=== PATIENT | female | born 1990 | race Caucasian/White ===

== ENCOUNTER 2022-02-15 15:22 | Outpatient (REF) | payer OTHER, SELFPAY ==
[2022-02-15 16:09] LABS: Influenza A PCR POSITIVE (Negative); Influenza B PCR NEGATIVE (Negative); Resp Syncy Virus RNA Qual PCR NEGATIVE (Negative); SARS COV2 PCR INHOUSE NEGATIVE (Negative)
== END 2022-02-15 15:23 | disposition home or self-care (01) ==
LOC: HO.LNP 15:22
DX: J06.9 Acute upper respiratory infection, unspecified (principal); Z20.822 Contact with and (suspected) exposure to COVID-19
CPT/HCPCS: 0241U

== ENCOUNTER 2022-03-08 19:14 | Outpatient (REF) | payer OTHER, SELFPAY ==
[2022-03-08 20:08] LABS: Influenza A PCR NEGATIVE (Negative); Influenza B PCR NEGATIVE (Negative); Resp Syncy Virus RNA Qual PCR NEGATIVE (Negative); SARS COV2 PCR INHOUSE NEGATIVE (Negative)
== END 2022-03-08 19:15 | disposition home or self-care (01) ==
LOC: HO.LNP 19:14
PROVIDERS: Visit Provider Physician Assistant Medical
DX: Z20.822 Contact with and (suspected) exposure to COVID-19 (principal); R05.9 Cough, unspecified
CPT/HCPCS: 0241U

== ENCOUNTER 2022-09-24 13:24 | Outpatient (AMB) | payer OTHER, SELFPAY ==
--- NOTE | 2022-09-24 13:29 | A.OFFPC_ITS ---
Vital Signs 09/24/22 13:31 Height 5 ft 6 in Weight 161 lb BMI 26.0 BP 110/68 Blood Pressure Location Lt brachial Position Sitting Pulse 79 Pulse Source Pulse Oximeter Pulse Oximetry (%) 100 Oxygen Delivery Method Room Air Intake Visit Reasons: Annual PE do not resched plz Intake Note: Pt is here today for a PE. Allergies No Known Allergies Allergy (Verified 09/24/22 13:33) Tobacco use date assessed: 09/24/22 Dental Screening Dental Screen Date: 09/24/22 Did you have a dental visit in the last 12 months?: Yes Did you have a dental problem in the last 6 months where you did not have access to dental care?: No Was dental information given to patient?: Patient has dentist HPI Annual PE do not resched plz HPI Details Pt presents for PE. Patient follows up with psychiatrist and psychologist for chronic depression and anxiety. [facility] Medical History (Updated 09/24/22 @ 15:13 by Lety Muse MD) ADHD Annual physical exam Anxiety Back pain History of Papanicolaou smear of cervix Reactive depression Viral upper respiratory tract infection with cough Surgical History No pertinent past surgical history Family History Father No problems noted. Mother No problems noted. Brother Mental health disorder Social History Housing: House Patient Tobacco Use Status: Never used Tobacco e-Cigarette/Vaping Use: Never Used Current occupational status: employed Cognitive needs: No Hearing needs: No Vision needs: No Questionnaire PHQ-9 Over the last 2 weeks, how often have you been bothered by any of the following problems? 1. Little interest or pleasure in doing things: more than half the days 2. Feeling down, depressed, or hopeless: more than half the days 3. Trouble falling or staying asleep, or sleeping too much: nearly every day 4. Feeling tired or having little energy: more than half the days 5. Poor appetite or overeating: more than half the days 6. Feeling bad about yourself - or that you are a failure or have let yourself or your family down: nearly every day 7. Trouble concentrating on things, such as reading the newspaper or watching television: nearly every day 8. Moving or speaking so slowly that other people could have noticed. Or the opposite - being so fidgety or restless that you have been moving around a lot more than usual: nearly every day 9. Thoughts that you would be better off or of hurting yourself in some way: more than half the days Total score: 22 Depression Screening Interpretation: Positive Source: Developed by Drs. Panchito Davis, Justina Angulo, Franklin Cross and colleagues, with an educational felipe from [employer]. Thrive Questionnaire Date Thrive assessed: 09/24/22 I am a: Patient What is your living situation today?: I have a steady place to live Within the past 12 months, did the food you bought not last and you didn't have the money to get more?: Never true Within the past 12 months, did you worry whether your food would run out before you got money to buy more?: Never true Do you have trouble paying for medicines?: No Do you have trouble getting transportation to medical appointments?: No Do you have trouble paying your heating and electricity bill?: No Do you have trouble taking care of your child, family member or friend?: Yes Do you have trouble with day-to-day activities such as bathing, preparing meals, shopping, managing finances, etc.?: No Are you currently unemployed and looking for a job?: No Are you interested in more education?: Yes Please select the resources that you would like help with: None Currently or been in a relationship where the following occur: no concerns reported AUDIT C Alcohol Use Questionnaire (AUDIT-C) 1. How often do you have a drink containing alcohol?: Monthly or less 2. How many drinks containing alcohol do you have on a typical day when you are drinking?: 1 or 2 3. How often do you have six or more drinks on one occasion?: Never Total Score: 1 CODY-7 AMB Questionnaire CODY-7 Date CODY - 7 assessed: 09/24/22 Feeling nervous, anxious, or on edge: 2 = More than half the days Not being able to stop or control worryin = Nearly every day Worrying too much about different things: 3 = Nearly every day Trouble relaxin = Several days Being so restless that it is hard to sit still: 1 = Several days Becoming easily annoyed or irritable: 2 = More than half the days Feeling afraid as if something awful might happen: 0 = Not at all Total CODY-7 score (0-4 normal; 5-9 mild; 10-14 moderate; 15-21 severe): 12 Source: Developed by Drs. Panchito Davis, Justina Angulo, Franklin Cross and colleagues, with an educational felipe from [employer]. Review of Systems Const All systems reviewed & are unremarkable except as noted in HPI and below Reports no additional complaints Eyes Reports no additional complaints ENT Reports no additional complaints Card Reports no additional complaints Resp Reports no additional complaints GI Reports no additional complaints Reports no additional complaints Physical exam (Primary Care) Vital Signs: Last Vital Signs Pulse 79 09/24/22 13:31 BP 110/68 09/24/22 13:31 Pulse Ox 100 09/24/22 13:31 Oxygen Delivery Method Room Air 09/24/22 13:31 BMI result Body Mass Index 26.0 Tobacco/Smoking Status: Tobacco use Status Tobacco use date assessed 09/24/22 09/24/22 13:37 Patient Tobacco Use Status Never used Tobacco 09/24/22 13:37 e-Cigarette/Vaping Use Never Used 09/24/22 13:30 PHQ-9: PHQ-9 Score PHQ-9: Total score 22 09/24/22 14:37 Depression Screening Interpretation: Positive Thrive Assessment: Date of Thrive Assessment Date Thrive assessed 09/24/22 09/24/22 13:39 Currently or been in a relationship where the following occur: no concerns reported Const General: no acute distress HENMD Head: Yes normal to inspection Ears: hearing grossly normal bilaterally General nose exam: Normal external nose present Face and sinus: Yes normal facial exam Mouth: Normal oral and palatal mucosa present Throat: Yes posterior oropharynx normal Eyes General: appearance normal, both eyes and all related structures Neck Neck: Yes no lymphadenopathy and Yes supple Resp Effort & Inspection: normal respiratory effort Auscultation: clear to auscultation bilaterally Cardio Rhythm: regular rhythm Heart sounds: S1 normal heart sound present and S2 normal heart sound present GI Inspection: Yes normal to inspection Palpation (GI): Soft to palpation Percussion: Yes normal to percussion Auscultation: normal bowel sounds Results AMB Urinalysis, Automated UA Leukoctes 0 Howard/uL Last Edit by Kae Jose RN on 09/24/22 14:17 UA Nitrite Negative Last Edit by Kae Jose RN on 09/24/22 14:17 UA Urobilinogen 0.2 mg/dL Last Edit by Kae Jose RN on 09/24/22 14:17 UA Protein 0 mg/dL Last Edit by Kae Jose RN on 09/24/22 14:17 UA pH 8.5 Last Edit by Kae Jose RN on 09/24/22 14:17 UA Blood 0 Misael/uL Last Edit by Kae Jose RN on 09/24/22 14:17 UA Specific [place] 1.010 Last Edit by Kae Jose RN on 09/24/22 14:17 UA Ketone Negative Last Edit by Kae oJse RN on 09/24/22 14:17 UA Bilirubin 0 mg/dL Last Edit by Kae Jose RN on 09/24/22 14:17 UA Glucose 0 mg/dL Last Edit by Kae Jose RN on 09/24/22 14:17 Results Reviewed Results Reviewed: Laboratory Last Values Urine pH (Auto) 8.5 09/24/22 14:15 Specific [place] (Auto) 1.010 09/24/22 14:15 Urine Protein (Auto) 0 mg/dL 09/24/22 14:15 Glucose (UA)(Auto) 0 mg/dL 09/24/22 14:15 Urine Ketones (Auto) Negative 09/24/22 14:15 Urine Blood (Auto) 0 Misael/uL 09/24/22 14:15 Urine Nitrite (Auto) Negative 09/24/22 14:15 Urine Bilirubin (Auto) 0 mg/dL 09/24/22 14:15 Urine Urobilinogen (Auto) 0.2 mg/dL 09/24/22 14:15 Leukocyte Esterase (Auto) 0 Howard/uL 09/24/22 14:15 Assessment and Plan Assessment & Plan (1) Cough: Code(s): R05.9 - Cough, unspecified Plan: For chronic cough check chest x-ray (2) Annual physical exam: Code(s): Z00.00 - Encounter for general adult medical examination without abnormal findings Plan: Well-balanced diet and regular physical activity discussed with the patient. she will return for fasting blood work and will schedule Pap smear (3) Anxiety: Comment: f/u with psychiatrist and psychologist Code(s): F41.9 - Anxiety disorder, unspecified Orders: Orders Comprehensive [place]. Panel Fast Today R05.9 - Cough, unspecified, Z00.00 - Encounter for general adult medical examination without abnormal findings Complete Blood Count Auto Diff Today R05.9 - Cough, unspecified, Z00.00 - Encounter for general adult medical examination without abnormal findings Lipid Panel Today R05.9 - Cough, unspecified, Z00.00 - Encounter for general adult medical examination without abnormal findings HIV Ab/Ag Today R05.9 - Cough, unspecified, Z00.00 - Encounter for general adult medical examination without abnormal findings Syphilis Screen Today R05.9 - Cough, unspecified, Z00.00 - Encounter for general adult medical examination without abnormal findings CT NG by PCR Today R05.9 - Cough, unspecified, Z00.00 - Encounter for general adult medical examination without abnormal findings Vitamin B12 and Folate Today R05.9 - Cough, unspecified, Z00.00 - Encounter for general adult medical examination without abnormal findings AMB Urinalysis Automated Today Z13.9 - Encounter for screening, unspecified Coding Level of Care Code Est Pt Prev Care 18-39y(31029) Diagnoses Cough R05.9 Annual physical exam Z00.00 Anxiety F41.9
[2022-09-24 13:31] VITALS: BP 110/68; PULSE 79; O2SAT 100; BMI 26.0
== END 2022-09-24 14:58 | disposition home or self-care (01) ==
PROVIDERS: PCP Internal Medicine; Visit Provider Internal Medicine
DX: R05.9 Cough, unspecified (principal); Z00.00 Encounter for general adult medical examination without abnormal findings; F41.9 Anxiety disorder, unspecified; Z13.9 Encounter for screening, unspecified
CPT/HCPCS: 81003; 99395

== ENCOUNTER 2022-09-24 14:30 | Outpatient (REF) | payer OTHER, SELFPAY ==
--- NOTE | ~2022-09-24 | XR_ITS ---
EXAMINATION: XR CHEST CLINICAL INFORMATION: Cough COMPARISON: None available. TECHNIQUE: 2 views of the chest were obtained. FINDINGS: The lungs are well expanded. There is no focal consolidation, edema, or effusion. No pneumothorax. The cardiomediastinal silhouette is within normal limits. No acute osseous abnormality. XR/XR chest 2V IMPRESSION: Clear lungs.
== END 2022-09-24 14:31 | disposition home or self-care (01) ==
LOC: HO.HMGCX 14:30
PROVIDERS: PCP Internal Medicine; Visit Provider Internal Medicine
DX: R05.9 Cough, unspecified (principal)
CPT/HCPCS: 71046

== ENCOUNTER 2022-11-12 12:37 | Outpatient (AMB) | payer OTHER, SELFPAY ==
[2022-11-12 13:08] VITALS: BP 106/64; PULSE 79; O2SAT 99; BMI 26.5
--- NOTE | 2022-11-12 13:08 | A.OFFPC_ITS ---
Vital Signs 11/12/22 13:08 Height 5 ft 6 in Weight 164 lb BMI 26.5 BP 106/64 Blood Pressure Location Rt brachial Position Sitting Pulse 79 Pulse Source Pulse Oximeter Pulse Oximetry (%) 99 Oxygen Delivery Method Room Air Intake Visit Reasons: 6 wk f/u Intake Note: Pt is here today for 6 weeks follow up visit. Allergies No Known Allergies Allergy (Verified 11/12/22 13:10) Medication List - Last Reconciled 11/12/22 by Lety Muse MD buspirone 5 mg PO BID PRN dextroamphetamine-amphetamine 20 mg ER 1 cap PO QAM Tobacco use date assessed: 09/24/22 HPI 6 wk f/u HPI Details Patient presents for Pap smear. She denies complaints [facility] Medical History ADHD Annual physical exam Anxiety Back pain History of Papanicolaou smear of cervix Reactive depression Viral upper respiratory tract infection with cough Surgical History No pertinent past surgical history Family History Father No problems noted. Mother No problems noted. Brother Mental health disorder Social History Housing: House Patient Tobacco Use Status: Never used Tobacco e-Cigarette/Vaping Use: Never Used Current occupational status: employed Cognitive needs: No Hearing needs: No Vision needs: No Questionnaire Thrive Questionnaire Date Thrive assessed: 09/24/22 CODY-7 AMB Questionnaire CODY-7 Date CODY - 7 assessed: 09/24/22 Source: Developed by Drs. Panchito Davis, Justina Angulo, Franklin Cross and colleagues, with an educational felipe from [email or web address]. Review of Systems Const All systems reviewed & are unremarkable except as noted in HPI and below Reports no additional complaints Eyes Reports no additional complaints ENT Reports no additional complaints Card Reports no additional complaints Resp Reports no additional complaints Reports no additional complaints Physical exam (Primary Care) Vital Signs: Last Vital Signs Pulse 79 11/12/22 13:08 BP 106/64 11/12/22 13:08 Pulse Ox 99 11/12/22 13:08 Oxygen Delivery Method Room Air 11/12/22 13:08 BMI result Body Mass Index 26.5 Tobacco/Smoking Status: Tobacco use Status Tobacco use date assessed 09/24/22 11/12/22 13:12 Patient Tobacco Use Status Never used Tobacco 11/12/22 13:12 e-Cigarette/Vaping Use Never Used 11/12/22 13:12 Thrive Assessment: Date of Thrive Assessment Date Thrive assessed 09/24/22 11/12/22 13:12 Const General: no acute distress HENMT Face and sinus: Yes normal facial exam Throat: Yes posterior oropharynx normal Neck Neck: Yes no lymphadenopathy and Yes supple Resp Effort & Inspection: normal respiratory effort Auscultation: clear to auscultation bilaterally Cardio Rhythm: regular rhythm Heart sounds: S1 normal heart sound present and S2 normal heart sound present GI Inspection: Yes normal to inspection Palpation (GI): Soft to palpation Auscultation: normal bowel sounds External Female Exam: normal external appearance Speculum Exam - Vagina: normal appearance of the vagina Speculum Exam - Cervix: normal appearance of the cervix Bimanual exam- vagina & uterus: normal bimanual exam Bimanual Exam- Adnexa, other: normal adnexae Assessment and Plan Assessment & Plan (1) Annual physical exam: Code(s): Z00.00 - Encounter for general adult medical examination without abnormal findings Plan: Pap smear Was done today. Check BV panel for vaginal discharge. Patient will return for fasting blood work Orders: Orders Pap Smear Today Z00.00 - Encounter for general adult medical examination without abnormal findings Bacterial Vaginosis Panel Today Z00.00 - Encounter for general adult medical examination without abnormal findings Coding Level of Care Code Est Pt Level 3 (04607) Diagnoses Annual physical exam Z00.00
== END 2022-11-12 15:21 | disposition home or self-care (01) ==
PROVIDERS: PCP Internal Medicine; Visit Provider Internal Medicine
DX: Z12.4 Encounter for screening for malignant neoplasm of cervix (principal)
CPT/HCPCS: 99213

== ENCOUNTER 2022-11-12 14:05 | Outpatient (REF) | payer OTHER, SELFPAY ==
[2022-11-16 12:48] LABS: HPV mRNA E6/E7 Not Detected (Not Detected)
== END 2022-11-12 14:06 | disposition home or self-care (01) ==
LOC: HO.LNP 14:05
PROVIDERS: Visit Provider Internal Medicine
DX: Z12.4 Encounter for screening for malignant neoplasm of cervix (principal)
CPT/HCPCS: 87624; 88142

== ENCOUNTER 2022-11-12 15:21 | Outpatient (REF) | payer OTHER, SELFPAY ==
[2022-11-13 08:49] LABS: BV Int Neg Control Negative (Negative); BV Int Pos Control Positive (Positive)
== END 2022-11-12 15:22 | disposition home or self-care (01) ==
LOC: HO.LAB 15:21
PROVIDERS: Visit Provider Internal Medicine
DX: Z00.00 Encounter for general adult medical examination without abnormal findings (principal)
CPT/HCPCS: 87480; 87510; 87660

== ENCOUNTER 2024-07-16 11:49 | Outpatient (AMB) | payer OTHER, SELFPAY ==
--- OUTSIDE RECORDS SUMMARY | 2024-07-16 12:20 | XMS_ITS | Patient Health Record ---
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 Name Role Phone Lety Muse MD Primary Care Provider Kam Villavicencio Unavailable [phone] Allergies No Known Allergies Reason For Referral No Information Medications Medication SIG (Take, Route, Frequency, Duration) Notes Start Date End Date Status BuSpar Active Immunizations Vaccine Route Administration Date Status Comme nts COVID-19 Pfizer BioNTech Vaccine Unknown 02/28/2020 Adm inistered #2 03/28/20 Social History Tobacco Use: Social History Observation Description Date Details (start date - stop date) Never Smoker NA - NA Tobacco Use/Smoking Question Answer Notes Are you a: nonsmoker Additional Findings: Tobacco Non-User Current no n-smoker Alcohol Screen Question Answer Notes Did you have a drink contain ing alcohol in the past year? Yes How often did you have a dri nk containing alcohol in the past year? Monthly or less (1 point) Points 1 Interpretation Negative Tobacco use other than smoking: Question Answer Notes Are you an other tobacco user? No Problems Problem Type SNOMED Code ICD Code Onset Dates Problem Status W/U Status Risk Notes Problem Plantar wart ([id number]) Plantar wart (B07.0) Active confirmed Plan Of Treatment Pending Test Test Name Order Date [id number] Destruction, -03/22/2020 [id number] Destruction, 03-2304/25/2020 [id number] Destruction, 03-2305/15/2020 [id number] Destruction, 03-2306/26/2020 [id number]-Pvwa Destruction, 03-2307/17/2020 [id number] Destruction, 03-2308/03/2020 Insurance Providers Payer Name Payer Address Payer Phone Subscriber Number Group Number Insured Name Patient Relationship to Insured Coverage Start Date Coverage End Date [employer] [address] [place] [phone] [id number] Mercy Pichardo Self - patient is the insured Medical (General) History Medical History History ICD Code Anxiety Tuberculosis 2011 Surgical History Surgery Date(Month/Year) Plantar wart removal 2012
--- OUTSIDE RECORDS SUMMARY | 2024-07-16 12:20 | XMS_ITS ---
Author Name [facility] Organization Unknown History of Medication Use Medication Directions Dispensed Refills Start Date End Date Stat us benzonatate (TESSALON) 100 MG capsule Swallow whole one (100mg) capsule by mouth 3 times a day as needed.Do not break, chew, dissolve, cut or crush. 03/16/2024 03/24/2024 active busPIRone (BUSPAR) 5 MG tablet 02/28/2024 active Problems Problem Status Onset Date Problem Type Date of Resoluti on Source Acute cough active EncounterDiagnosisAct [facility] Sore throat active EncounterDiagnosisAct [facility] Encounters Encounter Type Encounter Reason Primary Diagnosis Location Date Ambulatory Respiratory Acute pharyngiti s, unspecified [facility] 03/16/2024 Care Team Organization Name Specialty Phone Email Start Date End Da te [facility] NO PCP Primary Care 03/17
[2024-07-16 12:23] VITALS: BP 114/76; PULSE 84; RESP 18; TEMP 37.3; O2SAT 98; BMI 26.1
--- NOTE | 2024-07-16 12:23 | A.OFFPC_ITS ---
Vital Signs 07/16/24 12:23 Height 5 ft 6 in Weight 162 lb BMI 26.1 BP 114/76 Blood Pressure Location Lt brachial Position Sitting Respiration 18 Pulse 84 Pulse Source Pulse Oximeter Temp 99.1 F Temp Source Oral Pulse Oximetry (%) 98 Oxygen Delivery Method Room Air Intake Visit Reasons: Annual PE Intake Note: Pt is here today for PE. Pt states that she has EKG done at weight loss clinic in [place] and was told that the EKG was abnormal. Allergies No Known Allergies Allergy (Verified 07/16/24 12:27) Medication List - Last Reconciled 07/16/24 by Lety Muse MD buspirone 5 mg PO BID PRN dextroamphetamine-amphetamine 20 mg ER 1 cap PO QAM Tobacco use date assessed: 07/16/24 Dental Screening Dental Screen Date: 07/16/24 Did you have a dental visit in the last 12 months?: Yes Did you have a dental problem in the last 6 months where you did not have access to dental care?: No Was dental information given to patient?: Patient has dentist HPI Annual PE HPI Details Patient presents for physical. She went to weight loss clinic and had a EKG done which showed abnormalities and the patient is concerned. She had 2 episodes of heart palpitations while at work in the stressful situations within the last 6 months. The palpitations lasted about 5 minutes. She exercises at [facility] twice a week for an hour , weight lifting and cardio on the treadmill and denies any chest pain shortness or breath or palpitations while exercising. Patient is getting in November [facility] Medical History Viral upper respiratory tract infection with cough Annual physical exam Back pain History of Papanicolaou smear of cervix ADHD Reactive depression Anxiety Surgical History No pertinent past surgical history Family History Father No problems noted. Mother No problems noted. Brother Mental health disorder Social History Housing: House Patient Tobacco Use Status: Never used Tobacco e-Cigarette/Vaping Use: Never Used service: No Current occupational status: employed Cognitive needs: No Hearing needs: No Vision needs: No Questionnaire PHQ-9 Over the last 2 weeks, how often have you been bothered by any of the following problems? 1. Little interest or pleasure in doing things: not at all 2. Feeling down, depressed, or hopeless: not at all 3. Trouble falling or staying asleep, or sleeping too much: not at all 4. Feeling tired or having little energy: not at all 5. Poor appetite or overeating: not at all 6. Feeling bad about yourself - or that you are a failure or have let yourself or your family down: not at all 7. Trouble concentrating on things, such as reading the newspaper or watching television: not at all 8. Moving or speaking so slowly that other people could have noticed. Or the opposite - being so fidgety or restless that you have been moving around a lot more than usual: not at all 9. Thoughts that you would be better off or of hurting yourself in some way: not at all Total score: 0 Depression Screening Interpretation: Negative Depression Screening Done: Yes 26793 - PHQ-9 Billing: Yes Source: Developed by Drs. Panchito Davis, Justina Angulo, Franklin Cross and colleagues, with an educational felipe from [employer]. Thrive Questionnaire Date Thrive assessed: 07/16/24 I am a: Patient What is your living situation today?: I have a steady place to live Within the past 12 months, did the food you bought not last and you didn't have the money to get more?: Often true Within the past 12 months, did you worry whether your food would run out before you got money to buy more?: Often true Do you have trouble paying for medicines?: I choose not to answer this question Do you have trouble getting transportation to medical appointments?: I choose not to answer this question Do you have trouble paying your heating and electricity bill?: I choose not to answer this question Do you have trouble taking care of your child, family member or friend?: I choose not to answer this question Do you have trouble with day-to-day activities such as bathing, preparing meals, shopping, managing finances, etc.?: I choose not to answer this question Are you currently unemployed and looking for a job?: I choose not to answer this question Are you interested in more education?: I choose not to answer this question Please select the resources that you would like help with: None Currently or been in a relationship where the following occur: I choose not to answer THRIVE Score: 2 AUDIT C Alcohol Use Questionnaire (AUDIT-C) 1. How often do you have a drink containing alcohol?: Never 3. How often do you have six or more drinks on one occasion?: Never Total Score: 0 CODY-7 AMB Questionnaire CODY-7 Date CODY - 7 assessed: 07/16/24 Feeling nervous, anxious, or on edge: 0 = Not at all Not being able to stop or control worryin = Not at all Worrying too much about different things: 0 = Not at all Trouble relaxin = Not at all Being so restless that it is hard to sit still: 0 = Not at all Becoming easily annoyed or irritable: 0 = Not at all Feeling afraid as if something awful might happen: 0 = Not at all Total CODY-7 score (0-4 normal; 5-9 mild; 10-14 moderate; 15-21 severe): 0 Source: Developed by Drs. Panchito Davis, Justina Angulo, Franklin Cross and colleagues, with an educational felipe from [employer]. CODY-7 Assessment Billing CODY-7 Assessment Tool: CODY-7 Assessment 59552 Review of Systems Const All systems reviewed & are unremarkable except as noted in HPI and below Reports no additional complaints Eyes Reports no additional complaints ENT Reports no additional complaints Card Reports no additional complaints Resp Reports no additional complaints GI Reports no additional complaints Reports no additional complaints Physical exam (Primary Care) Vital Signs: Last Vital Signs Temp 99.1 F 07/16/24 12:23 Pulse 84 07/16/24 12:23 Resp 18 07/16/24 12:23 BP 114/76 07/16/24 12:23 Pulse Ox 98 07/16/24 12:23 Oxygen Delivery Method Room Air 07/16/24 12:23 BMI result Body Mass Index 26.1 Tobacco/Smoking Status: Tobacco use Status Tobacco use date assessed 07/16/24 07/16/24 12:30 Patient Tobacco Use Status Never used Tobacco 07/16/24 12:30 e-Cigarette/Vaping Use Never Used 07/16/24 12:30 PHQ-9: PHQ-9 Score PHQ-9: Total score 0 07/16/24 12:30 Depression Screening Interpretation: Negative Thrive Assessment: Date of Thrive Assessment Date Thrive assessed 07/16/24 07/16/24 12:32 Currently or been in a relationship where the following occur: I choose not to answer Const General: no acute distress HENMT Head: Yes normal to inspection Ears: hearing grossly normal bilaterally Face and sinus: Yes normal facial exam Mouth: Normal oral and palatal mucosa present Throat: Yes posterior oropharynx normal Eyes General: appearance normal, both eyes and all related structures Neck Neck: Yes no lymphadenopathy and Yes supple Resp Effort & Inspection: normal respiratory effort Auscultation: clear to auscultation bilaterally Cardio Rhythm: regular rhythm Heart sounds: S1 normal heart sound present and S2 normal heart sound present GI Inspection: Yes normal to inspection Palpation (GI): Soft to palpation Percussion: Yes normal to percussion Auscultation: normal bowel sounds Results AMB Urinalysis, Automated UA Leukoctes 0 Howard/uL Last Edit by Tala Medrano Teresa on 07/16/24 12:31 UA Nitrite Negative Last Edit by Tala Medrano [facility] on 07/16/24 12:31 UA Urobilinogen 0.2 mg/dL Last Edit by Tala Medrano [facility] on 07/16/24 12: 31 UA Protein 0 mg/dL Last Edit by Tala Medrano [facility] on 07/16/24 12:31 UA pH 7.0 Last Edit by Tala Medrano [facility] on 07/16/24 12:31 UA Blood 0 Misael/uL Last Edit by Tala Medrano [facility] on 07/16/24 12:31 UA Specific Eunice 1.005 Last Edit by Tala Medrano [facility] on 07/16/24 12 :31 UA Ketone Negative Last Edit by Tala Medrano [facility] on 07/16/24 12:31 UA Bilirubin 0 mg/dL Last Edit by Tala Medrano [facility] on 07/16/24 12:31 UA Glucose 0 mg/dL Last Edit by Tala Medrano [facility] on 07/16/24 12:31 Results Reviewed Results Reviewed: Laboratory Last Values Urine pH (Auto) 7.0 07/16/24 12:30 Specific Eunice (Auto) 1.005 07/16/24 12:30 Urine Protein (Auto) 0 mg/dL 07/16/24 12:30 Glucose (UA)(Auto) 0 mg/dL 07/16/24 12:30 Urine Ketones (Auto) Negative 07/16/24 12:30 Urine Blood (Auto) 0 Misael/uL 07/16/24 12:30 Urine Nitrite (Auto) Negative 07/16/24 12:30 Urine Bilirubin (Auto) 0 mg/dL 07/16/24 12:30 Urine Urobilinogen (Auto) 0.2 mg/dL 07/16/24 12:30 Leukocyte Esterase (Auto) 0 Howard/uL 07/16/24 12:30 Coding Level of Care Code Est Pt Prev Care 18-39y(31312) Diagnoses Annual physical exam Z00. Additional Codes CODY-7 Assessment Billing - CODY-7 Assessment Tool: CODY-7 Assessment 97021 ([id number]) PHQ-9 - 52403 - PHQ-9 Billing: Yes ([id number]) Assessment & Plan Assessment & Plan (1) Annual physical exam: Code(s): Z00.00 - Encounter for general adult medical examination without abnormal findings Category: Medical Plan: Well-balanced diet regular physical activity discussed with the patient she will have a fasting blood work today. EKG shows sinus rhythm with sinus arrhythmia the T-wave inversions in 3 AVF V4 through V6. Echocardiogram and Holter will be obtained to evaluate Orders: Orders Complete Blood Count Auto Diff Today R00.2 - Palpitations, Z00.00 - Encounter for general adult medical examination without abnormal findings TSH reflex Free T4 Today R00.2 - Palpitations, Z00.00 - Encounter for general adult medical examination without abnormal findings Vitamin D 25-OH Total Today Z00.00 - Encounter for general adult medical examination without abnormal findings CA echo transthoracic complete Today R00.2 - Palpitations, R94.31 - Abnormal electrocardiogram [ECG] [EKG] ECG 3 day holter monitor Today R00.2 - Palpitations, R94.31 - Abnormal electrocardiogram [ECG] [EKG] AMB EKG-In Office Today R00.2 - Palpitations, R94.31 - Abnormal electrocardiogram [ECG] [EKG] AMB Urinalysis Automated Today Z13.9 - Encounter for screening, unspecified Comprehensive [place]. Panel Fast Today R00.2 - Palpitations, Z00.00 - Encounter for general adult medical examination without abnormal findings Lipid Panel Today R00.2 - Palpitations, Z00.00 - Encounter for general adult medical examination without abnormal findings UA w Microscopic Today Z00.00 - Encounter for general adult medical examination without abnormal findings
== END 2024-07-16 13:23 | disposition home or self-care (01) ==
LOC: HO.HMCC 11:50
PROVIDERS: PCP Internal Medicine; Visit Provider Internal Medicine
DX: Z00.00 Encounter for general adult medical examination without abnormal findings (principal); Z13.9 Encounter for screening, unspecified

== ENCOUNTER 2024-07-16 11:49 | Outpatient (REF) | payer OTHER, SELFPAY ==
[2024-07-16 16:12] LABS: MANUAL DIFF FLAG NO
[2024-07-16 16:27] LABS: Basophils Percent Auto 0.5 % (0-2); Hematocrit 40.4 % (37.0-47.0); Hemoglobin 13.4 g/dl (12.0-16.0); Imm Gran Abs Auto 0.03 X10*3/uL (0.00-0.03); Imm Gran Pct Auto 0.4 % (0.0-0.4); Lymphocytes Absolute Auto 2.2 X10*3/uL (1.2-4.9); Lymphocytes Percent Auto 27.5 % (20-40); Mean Corpuscular HGB Conc 33.2 g/dl (31.0-35.0); Mean Corpuscular Hemoglobin 30.3 pg (27.0-33.0); Mean Corpuscular Volume 91.4 fL (80.0-98.0); Monocytes Absolute Auto 0.6 X10*3/uL (0.1-1.2); Neutrophils Absolute Auto 5.1 x10*3/uL (2.0-8.3); Neutrophils Percent Auto 64.6 % (45-73); Platelet Count 246 X10*3/uL (160-400); Red Blood Count 4.42 X10*6/uL (4.20-5.50); Red Cell Distribution Width 11.9 % (11.0-16.0)
[2024-07-16 17:53] LABS: Alanine Aminotransferase 21 U/L (0-31); Albumin Level 4.2 g/dL (3.5-5.0); Anion Gap 13 (12-20); Aspartate Amino Transferase 24 U/L (5-31); Bilirubin Total 0.7 mg/dL (0.0-1.0); Blood Urea Nitrogen 10 mg/dL (9-16); Calcium 9.2 mg/dL (8.4-10.2); Carbon Dioxide 26 mmol/L (22-29); Chloride 104 mmol/L (96-108); Cholesterol 159 mg/dL (<200); Estimated Glomerular Filt Rate > 60; Glucose Fasting 81 mg/dL (60-99); HDL Cholesterol 55 mg/dL (>40); LDL Cholesterol Calculated 93 mg/dL (<100); Potassium 4.2 mmol/L (3.3-5.1); Sodium 139 mmol/L (135-145); Total Protein 7.3 g/dL (6.5-8.0); Triglycerides 55 mg/dL (<150)
[2024-07-16 17:58] LABS: TSH reflex Free T4 1.56 uIU/mL (0.32-4.0); Vitamin D 25-OH Total 27.5 ng/mL (>30)
[2024-07-16 18:08] LABS: Alkaline Phosphatase 69 U/L (39-117)
== END 2024-07-16 11:50 | disposition home or self-care (01) ==
LOC: HO.HMGCLDS 11:49
PROVIDERS: PCP Internal Medicine; Visit Provider Internal Medicine
DX: Z00.00 Encounter for general adult medical examination without abnormal findings (principal); R00.2 Palpitations
CPT/HCPCS: 36415; 80053; 80061; 81003; 82306; 84443; 85025; 96127

== ENCOUNTER → 2024-08-13 08:11 | Outpatient (REF) | payer OTHER, SELFPAY ==
--- OUTSIDE RECORDS SUMMARY | 2024-08-13 08:15 | XMS_ITS | Patient Health Record ---
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 Name Role Phone Lety Muse MD Primary Care Provider Kam Villavicencio Unavailable [phone] Allergies No Known Allergies Reason For Referral [...] W/U Status Risk Notes Problem Plantar wart (77033041) Plantar wart (B07.0) Active confirmed Plan Of Treatment Pending Test Test Name Order Date [id number] Destruction, -03/22/2020 [id number] Destruction, 03-2304/25/2020 [id number]-Vxwd Destruction, 03-2305/15/2020 [id number]-Bsug Destruction, 03-2306/26/2020 [id number] Destruction, 03-2307/17/2020 [id number] Destruction, 03-2308/03/2020 Insurance Providers Payer Name Payer Address Payer Phone Subscriber Number Group Number Insured Name Patient Relationship to Insured Coverage Start Date Coverage End Date [employer] [address] [place] [phone] [id number] Mercy Pichardo Self - patient is the insured Medical (General) History Medical History History ICD Code Anxiety Tuberculosis 2011 Surgical History Surgery Date(Month/Year) Plantar wart removal 2012
--- NOTE | 2024-08-13 08:19 | CA_ITS ---
Transthoracic Echocardiogram Patient (Last, First, Middle): Mercy Pichardo, Gender: Female Date of : 1990 Age: 34 Procedure Date: 08/13/2024 Procedure Type: Transthoracic Echocardiogram Location: OP Height: 167.64 cm Weight: 74.84 kg BSA: 1.84 m2 Heart Rate: bpm BP: 116 / 60 mmHg Chemical Maker: Referring MD: Lety Muse MD Symptoms: R00.2 - Palpitations Study Quality: Good ECG Rhythm: Sinus Conclusions: - The left ventricular systolic function is normal. The calculated ejection fraction is 63% by biplane method. - No obvious valvular pathology seen on this study. Findings Left Ventricle Normal left ventricular cavity size. There is normal left ventricular wall thickness. The left ventricular systolic function is normal. The calculated ejection fraction is 63% by biplane method. There is no evidence of regional wall motion abnormalities. Diastolic function is normal for age. Right Ventricle Normal right ventricular cavity size and systolic function. Atria Both atria are normal in size. Aortic Valve There is a normal trileaflet aortic valve. There is no aortic valve stenosis. There is no aortic valve regurgitation. Mitral Valve The mitral valve appears normal. There is no mitral valve regurgitation. There is no mitral valve stenosis. Pulmonic Valve The pulmonic valve is likely normal. Tricuspid Valve There is trace tricuspid valve regurgitation. There is no evidence of pulmonary hypertension. Great Vessels The asc aorta is normal in size. Venous The inferior vena cava is normal in size and collapses greater than 50% with inspiration. Pericardium/Pleural There is no evidence of pericardial effusion. Prior Study Comparison No prior study available for comparison. Recommendations, Care & Conclusions No obvious valvular pathology seen on this study. Measurements 2D Linear Measurements IVSd: 0.75 0.6-0.9/0.6-1.0 cm LVIDd: 4.11 3.9-5.3/4.2-5.9 cm LVIDd Index: 2.23 2.4-3.2/2.2-3.1 cm/m2 LVIDs: 2.54 2.0-3.6 cm LVPWd: 0.81 0.7-1.1 cm Ao Root: 2.70 2.1-3.5 cm LA Diam: 2.70 2.7-3.8/3.0-4.0 cm LAIDs Index: 1.47 1.5-2.3 cm/m2 LV Mass: 117.87 67-162/88-224 g LV Mass Index: 64.06 43-95/49-115 g/m2 LVOT Diam: 2.10 3.0+(-)1.3 cm 2D Systolic Function EF 4C: 60.70 >55% EF 2C: 68.10 >55% EF BiP: 63.20 >55% Mitral Valve MV VTI: 0.22 MV Pk Richard: 0.98 MV Mn Richard: 0.65 MV Pk Grad: 4.00 MV Mn Grad: 2.00 MV Pk E: 0.97 MV PK A: 0.80 MV Decel Time: 121.00 E/A: 1.20 E'Lateral: 17.10 E'Medial: 9.90 E/E' Med: 9.80 E/E' Lat: 5.70 PHT: 36.00 MVA PHT: 6.11 MVA Continuity: 3.20 Decel [place]: 8.03 Aortic Valve AoV Pk Richard: 1.54 AoV Mn Richard: 1.07 AoV VTI: 0.35 AoV Pk Grad: 9.00 Aov Mn Grad: 5.00 RICA Cont.VTI: 2.07 LVOT LVOT Pk Richard: 0.93 LVOT Mn Richard: 0.65 LVOT VTI: 0.21 LVOT Pk Grad: 3.00 LVOT Mn Grad: 2.00 LVOT Diam: 2.10 LVOT Area: 3.46 Diastolic Function MV Pk E: 0.97 MV Pk A: 0.80 E/A: 1.20 E'Medial: 9.90 E/E' Med: 9.80 E' Laterial: 17.10 E/E' Lat: 5.70 Right Ventricle TAPSE (mm): 24.00 TVS' Richard: 13.00 Tricuspid Valve TR Pk Richard: 1.94 TR Pk Grad: 15.00 RA Press: 3.00 RVSP: 18.00 Great Vessels Aorta Ao Root-2D: 2.70 2.0-3.7 cm Ao Asc: 2.50 2.1-3.4 cm Pulmonary Valve PV Pk Richard: 1.02 Peak PV Grad: 4.00 Updated in Other Vendor System with Status of Final Oscar Grajeda MD electronically signed on 08/14/2024 12:31:14 PM with status of Final
== END ==
LOC: HO.CARD 08:11
PROVIDERS: Visit Provider Internal Medicine
DX: R00.2 Palpitations (principal); R94.31 Abnormal electrocardiogram [ECG] [EKG]
CPT/HCPCS: 93242; 93306

== ENCOUNTER → 2024-08-13 08:19 | Outpatient (BNV) | payer OTHER, SELFPAY | PROVIDERS: Visit Provider Internal Medicine | DX: I36.1 Nonrheumatic tricuspid (valve) insufficiency (principal) | CPT/HCPCS: 93306 ==